=== PATIENT | female | born 1995 | race Caucasian/White ===

== ENCOUNTER 2017-05-25 21:08 | Emergency (ER) | payer MEDICAID ==
[~2017-05-25] VITALS: Ht 149.9 cm; Wt 42.0 kg
[2017-05-25 21:13] VITALS: BP 97/60
[2017-05-25] MEDS ORDERED: SODIUM CHLORIDE 0.9% 1,000ML IVBOLUS ONE (21:30)
[2017-05-25] MEDS ORDERED: PLEASE ENTER ALLERGIES MC SCH ×2 (21:30)
== END 2017-05-25 22:54 | disposition home or self-care (01) ==
LOC: ED 22:07
DX: R55 Syncope and collapse (principal)
CPT/HCPCS: 36415; 84703; 93005; 99285